=== PATIENT | female | born 1940 | race African-American/Black ===

== ENCOUNTER 2019-04-28 11:18 | Observation (INO) ==
[2019-04-28] MEDS ORDERED: ACETAMINOPHEN 325 MG TABLET PO PRN (11:23)
[2019-04-28] MEDS ORDERED: ONDANSETRON 4 MG/2 ML VIAL IV PRN (11:23)
[2019-04-28 13:06] LABS: Apearance,Urine CLEAR (Clear); Bilirubin,Urine Negative (Negative); Blood, Urine Negative (Negative); Glucose,Urine (UA) Negative (Negative); Hyaline Casts,Urine 1 /LPF (0-3); Ketones,Urine Negative (Negative); Mucus,Urine Occasional /LPF (Occasional); Nitrite,Urine Negative (Negative); Protein,Urine Negative; RBC,Urine <1 /HPF (0-4); Squamous Epithelial Cell,Urine Occasional /HPF (0-10); Urine Color Yellow (Yellow); Urine Specific Gravity 1.011 (1.001-1.035); Urine Urobilinogen < 2.0 EU/DL (0.2-1.0); WBC,Urine 7 /HPF (0-6)
[2019-04-28 13:36] LABS: Basophils # 0.1 10*3/uL (0.0-0.2); Basophils % 0.3 % (0.0-0.8); Eosinophils # 0.1 10*3/uL (0.0-0.87); Eosinophils % 0.6 % (0.00-10.9); Hematocrit 32.6 VOL% (35.7-47.0); Hemoglobin 11.1 GM/DL (12.0-16.0); Immature Granulocytes % 0.6 %; Immature Granulocytes Absolute 0.09 #; Lymphocytes # 1.7 10*3/uL (1.4-4.0); Lymphocytes % 12.1 % (21.3-54.2); Mean Corpuscular Volume 85.3 FL (87-102); Mean Platelet Volume 9.6 FL (9.6-12.0); Monocytes % 8.5 % (1.7-12.7); Neutrophils % 77.9 % (38.7-73.9); Platelet Count 257 T/CUMM (130-400); Red Blood Count 3.82 MC/CUMM (3.8-5.5); Red Cell Distribution Width 14.1 % (9.3-17.3); White Blood Count 14.3 T/CUMM (4-12)
[2019-04-28 14:08] LABS: Albumin 3.5 G/DL (3.4-5.0); Bilirubin,Total 0.5 MG/DL (0.2-1.0); Calcium 9.5 MG/DL (8.5-10.1); Osmolality,Calculated 274.7 MOS/KG (273-304); Total Protein 8.2 G/DL (6.4-8.3)
[2019-04-28] MEDS: traMADol 50 MG TABLET PO PRN (16:10)
[2019-04-28] MEDS ORDERED: MORPHINE 4 MG/1 ML VIAL IV PRN (19:59)
[2019-04-28] MEDS: ENOXAPARIN 40 MG/0.4 ML SYRINGE SUBCUT SCH (20:55)
[2019-04-28] MEDS: DOCUSATE SODIUM 100 MG CAPSULE PO SCH (20:55)
[2019-04-29 04:50] LABS: Basophils # 0.1 10*3/uL (0.0-0.2); Basophils % 0.4 % (0.0-0.8); Eosinophils # 0.3 10*3/uL (0.0-0.87); Eosinophils % 2.4 % (0.00-10.9); Hemoglobin 10.1 GM/DL (12.0-16.0); Immature Granulocytes % 0.8 %; Immature Granulocytes Absolute 0.09 #; Lymphocytes # 2.8 10*3/uL (1.4-4.0); Lymphocytes % 23.7 % (21.3-54.2); Mean Corpuscular HGB Conc 33.7 GM/DL (32-36); Mean Corpuscular Volume 84.3 FL (87-102); Mean Platelet Volume 9.4 FL (9.6-12.0); Monocytes % 11.1 % (1.7-12.7); Neutrophils % 61.6 % (38.7-73.9); Platelet Count 252 T/CUMM (130-400); Red Blood Count 3.56 MC/CUMM (3.8-5.5); Red Cell Distribution Width 14.1 % (9.3-17.3); White Blood Count 11.9 T/CUMM (4-12)
[2019-04-29 05:23] LABS: Calcium 8.8 MG/DL (8.5-10.1); Osmolality,Calculated 276.7 MOS/KG (273-304)
[2019-04-29] MEDS: DOCUSATE SODIUM 100 MG CAPSULE PO SCH ×2 (08:57→20:56)
[2019-04-29 11:31] LABS: Measles IgG Antibody Index 3.2
[2019-04-29] MEDS ORDERED: BISACODYL 10 MG SUPP RECTAL PRN (11:36)
[2019-04-29] MEDS: POLYETHYLENE GLYCOL POWDER 17 GM PACK PO PRN (12:47)
[2019-04-29] MEDS: methylPREDNISolone SOD SUC 40 MG/1 ML VIAL IV SCH (12:47)
[2019-04-29] MEDS: PANTOPRAZOLE 20 MG TABLET PO SCH (12:50)
[2019-04-29] MEDS: ENOXAPARIN 40 MG/0.4 ML SYRINGE SUBCUT SCH (20:56)
[2019-04-30 04:28] LABS: Basophils # 0.1 10*3/uL (0.0-0.2); Basophils % 0.3 % (0.0-0.8); Eosinophils % 0.3 % (0.00-10.9); Hematocrit 29.3 VOL% (35.7-47.0); Hemoglobin 10.1 GM/DL (12.0-16.0); Immature Granulocytes % 0.6 %; Immature Granulocytes Absolute 0.09 #; Lymphocytes # 2.3 10*3/uL (1.4-4.0); Lymphocytes % 15.4 % (21.3-54.2); Mean Corpuscular HGB Conc 34.5 GM/DL (32-36); Mean Corpuscular Volume 83.5 FL (87-102); Mean Platelet Volume 9.6 FL (9.6-12.0); Monocytes % 9.3 % (1.7-12.7); Neutrophils % 74.1 % (38.7-73.9); Platelet Count 265 T/CUMM (130-400); Red Blood Count 3.51 MC/CUMM (3.8-5.5); Red Cell Distribution Width 13.7 % (9.3-17.3); White Blood Count 15.1 T/CUMM (4-12)
[2019-04-30 08:25] VITALS: BP 149/72
[2019-04-30] MEDS ORDERED: FAMOTIDINE 20 MG TABLET PO SCH (09:00)
[2019-04-30] MEDS: DOCUSATE SODIUM 100 MG CAPSULE PO SCH (09:50)
[2019-04-30] MEDS: methylPREDNISolone SOD SUC 40 MG/1 ML VIAL IV SCH (09:50)
[2019-04-30] MEDS: traMADol 50 MG TABLET PO PRN (09:51)
[2019-04-30] MEDS: POLYETHYLENE GLYCOL POWDER 17 GM PACK PO PRN (09:51)
[2019-04-30] MEDS: PANTOPRAZOLE 20 MG TABLET PO SCH (09:51)
[2019-05-02 11:21] LABS: EBV Nuclear Ag Antibody Positive (Negative); EBV Virus IgG Ab Positive (Negative); EBV Virus IgM Ab Negative (Negative)
== END 2019-04-30 11:59 | disposition home health service (06) ==
LOC: N.2E
PROVIDERS: ADMIT Family Medicine; ATTEND Family Medicine

== ENCOUNTER 2019-05-07 05:15 | Inpatient (IN) ==
[2019-05-07] MEDS ORDERED: methylPREDNISolone SOD SUC 125 MG/2 ML VIAL IV STA (06:27)
[2019-05-07 07:13] LABS: Basophils # 0.1 10*3/uL (0.0-0.2); Basophils % 0.5 % (0.0-0.8); Eosinophils # 0.2 10*3/uL (0.0-0.87); Hematocrit 30.8 VOL% (35.7-47.0); Hemoglobin 10.6 GM/DL (12.0-16.0); Immature Granulocytes % 0.8 %; Immature Granulocytes Absolute 0.12 #; Lymphocytes # 2.7 10*3/uL (1.4-4.0); Lymphocytes % 17.4 % (21.3-54.2); Mean Corpuscular HGB Conc 34.4 GM/DL (32-36); Mean Corpuscular Volume 83.9 FL (87-102); Mean Platelet Volume 9.1 FL (9.6-12.0); Monocytes % 8.5 % (1.7-12.7); Neutrophils % 71.8 % (38.7-73.9); Platelet Count 324 T/CUMM (130-400); Red Blood Count 3.67 MC/CUMM (3.8-5.5); Red Cell Distribution Width 14.2 % (9.3-17.3); White Blood Count 15.2 T/CUMM (4-12)
[2019-05-07 07:36] LABS: Albumin 3.1 G/DL (3.4-5.0); Bilirubin,Total 0.4 MG/DL (0.2-1.0); Calcium 9.6 MG/DL (8.5-10.1); Osmolality,Calculated 285.1 MOS/KG (273-304); Total Protein 8.3 G/DL (6.4-8.3)
[2019-05-07] MEDS ORDERED: KETOROLAC 30 MG/1 ML VIAL ONE (07:53)
[2019-05-07] MEDS ORDERED: KETOROLAC 30 MG/1 ML VIAL IV STA (08:30)
[2019-05-07] MEDS ORDERED: traMADol 50 MG TABLET PO PRN (09:26)
[2019-05-07] MEDS ORDERED: ACETAMINOPHEN 325 MG TABLET PO PRN (09:26)
[2019-05-07] MEDS ORDERED: ONDANSETRON 4 MG/2 ML VIAL IV PRN (09:26)
[2019-05-07] MEDS ORDERED: methylPREDNISolone SOD SUC 125 MG/2 ML VIAL IV SCH (09:30)
[2019-05-07] MEDS: cefTRIAXone 1,000 MG in SYRINGE 1 EACH IV SCH (09:43)
[2019-05-07] MEDS ORDERED: BISACODYL 5 MG TABLET PO PRN (11:18)
[2019-05-07] MEDS ORDERED: DOCUSATE SODIUM 100 MG CAPSULE PO PRN (11:24)
[2019-05-07] MEDS ORDERED: PNEUMOCOCCAL VACCINE (13 VALENT) 0.5 ML SYRINGE IM ONE (11:39)
[2019-05-07] MEDS: PANTOPRAZOLE 40 MG TABLET PO SCH (11:49)
[2019-05-07] MEDS: methylPREDNISolone SOD SUC 40 MG/1 ML VIAL IV SCH ×2 (14:59→22:55)
[2019-05-07] MEDS: DOCUSATE SODIUM 100 MG CAPSULE PO SCH (20:40)
[2019-05-07] MEDS: TEMAZEPAM 15 MG CAPSULE PO PRN (22:59)
[2019-05-07] MEDS: FAMOTIDINE 20 MG TABLET PO SCH (22:59)
[2019-05-08] MEDS: methylPREDNISolone SOD SUC 40 MG/1 ML VIAL IV SCH ×2 (06:07→16:31)
[2019-05-08 07:34] LABS: Total Protein (Chem) 7.6 G/DL (6.4-8.3)
[2019-05-08] MEDS: PANTOPRAZOLE 40 MG TABLET PO SCH (08:09)
[2019-05-08] MEDS: DOCUSATE SODIUM 100 MG CAPSULE PO SCH ×2 (08:09→20:26)
[2019-05-08] MEDS: cefTRIAXone 1,000 MG in SYRINGE 1 EACH IV SCH (08:10)
[2019-05-08 08:55] LABS: Albumin (SPE) 3.7 G/DL (3.2-5.3); Albumin (SPE) Rel % 48.8 %; Alpha 1 (SPE) 0.3 G/DL (0.1-0.4); Alpha 1 (SPE) Rel % 3.4 %; Alpha 2 (SPE) 0.9 G/DL (0.4-1.0); Beta (SPE) 0.8 G/DL (0.5-1.1); Beta (SPE) Rel % 10.2 %; Gamma (SPE) 1.9 G/DL (0.7-1.7); Gamma (SPE) Rel % 25.6 %
[2019-05-08] MEDS ORDERED: PANTOPRAZOLE 40 MG TABLET PO SCH (09:00)
[2019-05-08] MEDS: FAMOTIDINE 20 MG TABLET PO SCH (20:26)
[2019-05-08] MEDS: TEMAZEPAM 15 MG CAPSULE PO PRN (20:26)
[2019-05-09] MEDS: methylPREDNISolone SOD SUC 40 MG/1 ML VIAL IV SCH ×2 (04:06→16:53)
[2019-05-09 05:44] LABS: Basophils % 0.2 % (0.0-0.8); Hematocrit 27.4 VOL% (35.7-47.0); Hemoglobin 9.5 GM/DL (12.0-16.0); Immature Granulocytes % 0.6 %; Immature Granulocytes Absolute 0.11 #; Lymphocytes # 2.1 10*3/uL (1.4-4.0); Lymphocytes % 11.9 % (21.3-54.2); Mean Corpuscular HGB Conc 34.7 GM/DL (32-36); Mean Corpuscular Volume 82.8 FL (87-102); Mean Platelet Volume 9.6 FL (9.6-12.0); Monocytes % 6.9 % (1.7-12.7); Neutrophils % 80.4 % (38.7-73.9); Platelet Count 334 T/CUMM (130-400); Red Blood Count 3.31 MC/CUMM (3.8-5.5); Red Cell Distribution Width 13.9 % (9.3-17.3); White Blood Count 17.9 T/CUMM (4-12)
[2019-05-09 06:09] LABS: Albumin 2.5 G/DL (3.4-5.0); Bilirubin,Total 0.4 MG/DL (0.2-1.0); Calcium 8.6 MG/DL (8.5-10.1); Osmolality,Calculated 287.3 MOS/KG (273-304); Total Protein 6.9 G/DL (6.4-8.3)
[2019-05-09 06:30] LABS: Hypochromasia 1+; Microcytosis 1+; Platelet Estimate Normal; Target Cells Slight
[2019-05-09] MEDS: DOCUSATE SODIUM 100 MG CAPSULE PO SCH ×2 (10:09→20:42)
[2019-05-09] MEDS: PANTOPRAZOLE 40 MG TABLET PO SCH (10:10)
[2019-05-09] MEDS: cefTRIAXone 1,000 MG in SYRINGE 1 EACH IV SCH (10:23)
[2019-05-09] MEDS: amLODIPine 5 MG TABLET PO SCH (15:09)
[2019-05-09] MEDS: TEMAZEPAM 15 MG CAPSULE PO PRN (20:42)
[2019-05-09] MEDS: FAMOTIDINE 20 MG TABLET PO SCH (20:43)
[2019-05-10] MEDS: methylPREDNISolone SOD SUC 40 MG/1 ML VIAL IV SCH (05:09)
[2019-05-10] MEDS ORDERED: PANTOPRAZOLE 40 MG TABLET PO SCH (07:30)
[2019-05-10 07:50] VITALS: BP 175/72
[2019-05-10] MEDS: DOCUSATE SODIUM 100 MG CAPSULE PO SCH (08:24)
[2019-05-10] MEDS: amLODIPine 5 MG TABLET PO SCH (08:24)
[2019-05-10] MEDS: cefTRIAXone 1,000 MG in SYRINGE 1 EACH IV SCH (08:26)
[2019-05-10] MEDS ORDERED: INFLUENZA VIRUS VACCINE 0.5 ML SYRINGE IM ONE (08:41)
[2019-05-26 10:01] LABS: Anti-Jo-1 Ab < 20 Units (<20); Anti-PM/Scl-100 Ab < 20 Units (<20); Anti-U1-RNP Ab < 20 Units (<20); EJ Negative (Negative); Fibrillarin (U3 RNP) Negative (Negative); Ku Negative (Negative); MI-2 Negative (Negative); OJ Negative (Negative); PL-12 Negative (Negative); PL-7 Negative (Negative); SRP Negative (Negative); U2 snRNP Negative (Negative)
== END 2019-05-10 09:42 | disposition home health service (06) | DRG 554 ==
LOC: N.ED 05:15 → N.EDINP 09:26 → N.2E 09:58
PROVIDERS: ADMIT Family Medicine; ATTEND Family Medicine